=== PATIENT | male | born 1985 | race African-American/Black ===

== ENCOUNTER 2019-09-11 18:59 | Inpatient (IN) | payer OTHER ==
[~2019-09-11] VITALS: Ht 180.3 cm; Wt 109.5 kg
[2019-09-11 00:15] VITALS: BP 135/75
[2019-09-11] MEDS ORDERED: IOHEXOL 300 MG/ML 100ML BOTTLE IJ ONE (20:40)
[2019-09-11 21:45] LABS: Basophils # (auto) 0.1 uL; Basophils % (auto) 1.4 % (0.0-2.0); Eosinophils # (auto) 0.1 uL; Eosinophils % (auto) 2.5 % (0.0-7.0); Hematocrit 41.5 % (41.0-53.0); Hemoglobin 14.1 g/dL (13.5-17.5); Lymphocytes # (auto) 2.8 uL; Lymphocytes % (auto) 46.6 % (10.0-50.0); Mean Corpuscular Hemoglobin 30.6 pg (28.0-32.0); Mean Corpuscular Volume 90.1 fL (80.0-100.0); Monocytes # (auto) 0.8 uL; Monocytes % (auto) 14.2 % (0.0-12.0); Neutrophils # (auto) 2.1 uL; Neutrophils % (auto) 35.3 % (37.0-80.0); Nucleated Red Blood Cells % 0.1 %; Platelet Count (auto) 372 10^3/uL (140-450); Red Blood Cells 4.61 10^6/uL (4.5-5.90); Red Cell Distribution Width 13.9 % (11.8-14.3); White Blood Cell 5.9 10^3/uL (4.4-10.8)
[2019-09-11 21:55] LABS: Partial Thromboplastin Time 29.3 sec (23.64-32.05)
[2019-09-11 21:59] LABS: Albumin 3.5 g/dL (3.4-5.0); BUN/Creatinine Ratio 11.5; Calcium 8.7 mg/dL (8.5-10.1); Potassium 3.8 mmol/L (3.5-5.1)
[2019-09-11 22:02] LABS: Bilirubin, Total 0.3 mg/dL (0.2-1.0); Total Protein 8.2 g/dL (6.4-8.2)
[2019-09-12] VITALS (8 sets, daily range): BP systolic 117–139; BP diastolic 65–88
--- NOTE | 2019-09-12 00:15 | NUR ---
MS admit from [facility] admitted to tele/MS after SBAR received. Patient oriented to Cici Cruz, primary RN, unit, room, bed, and unit policies regarding patient care and visiting hours. Patient weighed by bedscale and encouraged to call if they need something. All questions and concerns addressed, patient verbalized understanding.
[2019-09-12 05:32] LABS: Urine Blood Negative /uL (Negative); Urine Specific Gravity 1.034 (1.001-1.035)
--- NOTE | 2019-09-12 07:40 | NUR ---
Opening Shift Note Assumed care of patient, awake and alert. No S/S of distress/SOB or pain. Instructed on POC and to call for assist PRN, will continue to monitor for changes Q1hr and PRN.
[2019-09-12] MEDS ORDERED: VANCOMYCIN 1GM/250ML 250 ML IV SCH ×2 (08:30)
--- NOTE | 2019-09-12 10:35 | NUR ---
Report given to Valentina RN who is assuming patient's care. No changes noted in patient's condition since last assessment.
--- NOTE | 2019-09-12 10:35 | NUR ---
ASSUMED CARE OF PATIENT. RECEIVED REPORT FROM CHIP RUSSO
[2019-09-12] MEDS: VANCOMYCIN 1GM/250ML 250 ML IV SCH (12:20)
--- NOTE | 2019-09-12 16:46 | NUR ---
WOUND CX WOUND CX COLLECTED AND SENT TO LAB.
--- NOTE | 2019-09-12 19:45 | NUR ---
Opening Shift Note Assumed care of patient, AOx4. No S/S of distress/SOB or pain. Guard at bedside for safety. Fall and safety precautions in place. Call light within reach and able to use. Instructed on POC and to call for assist PRN, will continue to monitor for changes Q1hr and PRN.
[2019-09-13 05:40] VITALS: BP 121/75
--- NOTE | 2019-09-13 07:40 | NUR ---
OPENING NOTE ASSUMED CARE OF PATIENT. ALERT AND ORIENTATED. NO S/S OF SOB OR DISTRESS NOTED. SAFETY PRECAUTIONS IN PLACE. BEDSIDE TO LOWEST POSITION/LOCKED. BEDSIDE RAILS UP X2. CALL LIGHT WITHIN REACH. INSTRUCTED PATIENT TO USE CALL LIGHT FOR ASSISTANCE. UPDATED ON PLAN OF CARE. PATIENT VERBALIZED UNDERSTANDING. WELL CONTINUE TO MONITOR Q1HR, AND PRN.
[2019-09-13 08:34] VITALS: BP 130/74
[2019-09-13] MEDS: ENOXAPARIN SOD 40 MG/0.4 ML SYRINGE SC SCH (10:17)
[2019-09-13] MEDS: VANCOMYCIN 1GM/250ML 250 ML IV SCH ×3 (12:22→23:56)
[2019-09-13 12:59] VITALS: BP 130/71
--- NOTE | 2019-09-13 16:00 | NUR ---
PATIENT OFF UNIT PATIENT TAKEN TO PRE OP VIA BED. NO S/S OF SOB OR DISTRESS NOTED.
[2019-09-13] MEDS ORDERED: ePHEDrine SULFATE 50 MG/ML AMP IV PRN ×2 (16:30→18:00)
[2019-09-13] MEDS ORDERED: ONDANSETRON HCL 4 MG/2 ML VIAL IV PRN ×2 (16:30→18:00)
[2019-09-13] MEDS ORDERED: MORPHINE SULFATE 4 MG/ML SYR/VIAL IV PRN (16:30)
[2019-09-13] MEDS ORDERED: hydrALAZINE HCL 20 MG/ML VL IV PRN ×2 (16:30→18:00)
[2019-09-13] MEDS ORDERED: BUPIVACAINE 0.5% MPF INJ 30ML SDV IJ ONE (17:10)
[2019-09-13] MEDS ORDERED: LIDOCAINE 1% HCL (LOCAL ANESTH.) INJ 20ML MDV ONE (17:10)
[2019-09-13] MEDS ORDERED: fentaNYL CITRATE 100 MCG/2 ML VL ONE (17:26)
[2019-09-13] MEDS ORDERED: MIDAZOLAM HCL 1MG/1ML-2 ML VIAL ONE (17:26)
[2019-09-13] MEDS ORDERED: PROPOFOL 10 MG/ML 20 ML IV ONE (17:29)
[2019-09-13] MEDS ORDERED: fentaNYL CITRATE 100 MCG/2 ML VL IV PRN (18:00)
--- NOTE | 2019-09-13 18:30 | NUR ---
PATIENT BROUGHT BACK TO UNIT VIA BED BY COMMUNITY ENGAGEMENT REPRESENTATIVE. NO S/S OF PAIN OR DISTRESS NOTED. WILL CONTINUE TO MONITOR.
--- NOTE | 2019-09-13 18:33 | NUR ---
POST I & D ASSESSMENT PATIENT LAYING IN BED COMFORTABLY, PINROSE TO LEFT INNER GROIN INTACT WITH MINIMUM SANGUINOUS DRAINAGE. NO S/S OR SOB OR DISTRESS NOTED. WILL CONTINUE TO MONITOR.
[2019-09-13] MEDS: HYDROcodone-ACET 10/325MG TAB PO PRN (18:51)
--- NOTE | 2019-09-13 19:20 | NUR ---
Opening Shift Note Received report from Anila RUSSO. Assumed care of patient, awake and alert, guards at bedside. No S/S of distress/SOB or pain. Left groin dressing with moderate sanguineous drainage. Instructed on POC and to call for assist PRN, will continue to monitor for changes Q1hr and PRN.
[2019-09-13 22:00] VITALS: BP 132/51
[2019-09-14 05:00] VITALS: BP 129/76
[2019-09-14 09:00] VITALS: BP 123/77
[2019-09-14] MEDS: VANCOMYCIN 1GM/250ML 250 ML IV SCH ×2 (12:32→23:52)
[2019-09-14] MEDS: ENOXAPARIN SOD 40 MG/0.4 ML SYRINGE SC SCH (12:33)
[2019-09-14 13:00] VITALS: BP 121/78
[2019-09-14] MEDS: HYDROcodone-ACET 10/325MG TAB PO PRN (14:03)
[2019-09-14 17:00] VITALS: BP 123/77
--- NOTE | 2019-09-14 18:20 | NUR ---
Opening Shift Note Assumed care of patient, awake and alert. No S/S of distress/SOB or pain. Instructed on POC and to call for assist PRN, will continue to monitor for changes Q1hr and PRN. Bed is lowest position, bed rails 2X, and bed wheels locked. Call light and bedside table within reach.
[2019-09-14 22:00] VITALS: BP 130/81
[2019-09-15] MEDS: HYDROcodone-ACET 10/325MG TAB PO PRN ×2 (00:05→09:59)
[2019-09-15 05:00] VITALS: BP 117/77
--- NOTE | 2019-09-15 06:49 | NUR ---
End of Shift Note Patient is resting in bed and has no s/s of distress, pain, or SOB. Call light and bedside table are within reach. Bed is in lowest position, bed rails 2x, bed wheels locked.
[2019-09-15 09:00] VITALS: BP 142/87
[2019-09-15] MEDS: ENOXAPARIN SOD 40 MG/0.4 ML SYRINGE SC SCH (10:00)
[2019-09-15] MEDS: VANCOMYCIN 1GM/250ML 250 ML IV SCH (12:21)
[2019-09-15] MEDS ORDERED: LEVO500T21 PO (12:36)
[2019-09-15 13:00] VITALS: BP 140/84
--- NOTE | 2019-09-15 17:30 | NUR ---
Discharge instructions given as ordered. Encourage to follow up with PMD as instructed. All questions and concerns addressed. Patient verbalized understanding. Medication reconciliation form completed and copy given to guards. No home medications held in Pharmacy and none returned to patient, and no needed vaccines given. IV removed with catheter intact, pressure dressing applied. Patient ambulated with steady gait to elevators with all personal belongings, accompanied by guards. No distress noted at time of departure.
== END 2019-09-15 18:31 | DRG 603 ==
LOC: EEVIPCON 19:13 → ER 19:13 → OVERFLOW 19:14 → EAST 23:29
PROVIDERS: ADMIT Internal Medicine; ATTEND Internal Medicine
PROC: 0Y980ZZ Drainage of Left Femoral Region, Open Approach (ICD-10-PCS; principal; 2019-09-13 17:20)
DX: L02.416 Cutaneous abscess of left lower limb (principal); L03.314 Cellulitis of groin; L73.2 Hidradenitis suppurativa; E66.9 Obesity, unspecified; B95.7 Other staphylococcus as the cause of diseases classified elsewhere; Z68.33 Body mass index [BMI] 33.0-33.9, adult
CPT/HCPCS: 36415; 74177; 80053; 80202; 81003; 82010; 82565; 85025; 85610; 85730; 87077; 87186; 87205; 96365; 96366; G0378; J2001; J2250; J2704; J3490